=== PATIENT | female | born 1980 | race Caucasian/White ===

== ENCOUNTER 2025-03-22 18:03 | Emergency (ER) | payer OTHER ==
[~2025-03-22] VITALS: Ht 162.6 cm; Wt 67.6 kg
[2025-03-22] MEDS ORDERED: NS 1,000 ML IV SCH (18:15)
[2025-03-22] MEDS ORDERED: Mag Hydrox/AL Hydrox/Simeth 30 ML UDC PO ONE ×2 (18:15→21:45)
[2025-03-22] MEDS ORDERED: Ketorolac Tromethamine 15mg Vial IV ONE (18:15)
[2025-03-22] MEDS ORDERED: Lidocaine 2% Viscous Soln 15 ML UDC PO ONE ×2 (18:15→21:45)
[2025-03-22 18:31] LABS: BASOPHILS ABSOLUTE AUTO 0.01 K/mm3 (0.00-0.23); BASOPHILS PERCENT AUTO 0 % (0-2); EOSINOPHILS ABSOLUTE AUTO 0.14 K/mm3 (0.00-0.68); EOSINOPHILS PERCENT AUTO 1 % (0-6); Hematocrit 39.1 % (33.0-51.0); Hemoglobin 13.4 g/dL (11.5-16.0); IMMATURE GRAN ABSOLUTE AUTO 0.04 K/mm3 (0.00-0.10); IMMATURE GRAN PERCENT AUTO 0 % (0-1); LYMPHOCYTES ABSOLUTE AUTO 2.28 K/mm3 (0.84-5.20); LYMPHOCYTES PERCENT AUTO 21 % (21-46); MONOCYTES ABSOLUTE AUTO 1.03 K/mm3 (0.16-1.47); MONOCYTES PERCENT AUTO 10 % (4-13); Mean Corpuscular HGB 31.8 pg (26.0-34.0); Mean Corpuscular HGB Conc 34.3 g/dL (31.5-36.5); Mean Corpuscular Volume 93 fL (80-100); Mean Platelet Volume 11.4 fL (9.1-12.4); NEUTROPHILS ABSOLUTE AUTO 7.36 K/mm3 (1.96-9.15); NEUTROPHILS PERCENT AUTO 68 % (41-73); Platelet Count 249 K/mm3 (150-400); RDW Coefficient Variation 12.1 % (11.7-14.2); RDW Standard Deviation 41.8 fL (35.1-46.3); Red Blood Cell Count 4.21 M/mm3 (3.80-5.20); White Blood Cell Count 10.86 K/mm3 (4.00-11.30)
[2025-03-22 18:51] LABS: Albumin, Blood 3.7 g/dL (3.4-5.0); Albumin/Globulin Ratio 1.1 (0.8-1.8); Bilirubin, Total 0.3 mg/dL (0.1-1.0); Bun/Creatinine Ratio 8.8 (12.0-20.0); Calcium, Blood 8.7 mg/dL (8.5-10.1); Creatinine, Blood 0.8 mg/dL (0.40-1.00); Globulin, Blood 3.5 g/dL (2.2-4.0); Potassium, Blood 3.7 mmol/L (3.5-5.5); Total Protein, Blood 7.2 g/dL (6.4-8.2)
[2025-03-22 20:25] LABS: Source, Urine Clean Catch
[2025-03-22 20:32] LABS: Appearance, Urine Clear (Clear); Bilirubin, Urine Neg (Neg); Blood, Urine 2+ (Neg); Color, Urine Yellow (P-Yellow); Glucose Qualitative, Urine Neg (Neg); Ketones, Urine 1+ (Neg); Leukocyte Esterase, Urine Neg (Neg); Nitrite, Urine Neg (Neg); Protein, Urine 1+ (Neg); Urobilinogen, Urine NORM (Normal)
[2025-03-22 20:50] LABS: Bacteria Few /hpf; Red Blood Cells, Urine 0-2 /hpf (0-2); Squamous Epithelial Cells Mod /hpf (Few); White Blood Cells, Urine 0-2 /hpf (0-5)
[2025-03-22] MEDS ORDERED: RX Prepack 2 Tabs Ondansetron ODT 4MG UD ONE (22:45)
[2025-03-22] MEDS ORDERED: RX Prepack 6 Tabs Oxycodone 5mg UD ONE (22:45)
[2025-03-22] MEDS ORDERED: RX Prepack 2 Sprays Naloxone HCL 4 MG/SPRAY UD ONE (22:45)
[2025-03-22 23:03] VITALS: BP 111/60
== END 2025-03-22 23:03 | disposition home or self-care (01) ==
LOC: ER 18:03
PROVIDERS: Emergency Medicine
DX: R10.13 Epigastric pain (principal); E86.0 Dehydration; R11.2 Nausea with vomiting, unspecified; Z59.89 Other problems related to housing and economic circumstances
CPT/HCPCS: 76705; 80053; 81001; 83690; 85025; 93005; 93010; 96374; 99284-25; A9270; J1885; J7030